=== PATIENT | female | born 1940 | race Caucasian/White ===

== ENCOUNTER 2016-10-20 10:21 | Day surgery (SDC) | payer MEDICARE, OTHER ==
[2016-10-18 12:20] VITALS: BMI 28.8
[~2016-10-20 10:21] MED LIST: ALBUTEROL NEB (CONC) 2.5 MG/0.5 ML INHALATION ONE; LACTATED RINGERS 1,000 ML IV ONE; LACTATED RINGERS 1,000 ML IV SCH; LIDOCAINE 2% (PF) 20 MG/ML 10ML INHALATION ONE
[2016-10-20] MEDS ORDERED: LIDOCAINE 1% 20 ML VIAL (10MG/ML) FOR IV START INTRADERMA ONE (11:24)
[2016-10-20] MEDS ORDERED: ONDANSETRON 4 MG/2 ML VIAL IVP ONE (12:35)
[2016-10-20 12:36] LABS: Glucose,Whole Blood 109 mg/dL (75-99)
[2016-10-20] MEDS ORDERED: DEXAMETHASONE SOD PHOSPHATE 10 MG/ML 1 ML VIAL IV ONE (12:36)
[2016-10-20] MEDS ORDERED: HYDROCORTISONE SUCCINATE 100 MG/2 ML VIAL IV ONE (12:36)
[2016-10-20] MEDS ORDERED: MIDAZOLAM 2 MG/2 ML VIAL ONE (13:39)
[2016-10-20] MEDS ORDERED: GLYCOPYRROLATE 0.2 MG/ML 2 ML VIAL ONE (13:39)
[2016-10-20] MEDS ORDERED: ePHEDrine 50 MG/ML 1 ML AMP ONE (13:39)
[2016-10-20] MEDS ORDERED: PROPOFOL 10 MG/ML 20 ML VIAL IV ONE (13:39)
[2016-10-20] MEDS ORDERED: SUCCINYLCHOLINE CHLORIDE 100 MG/5 ML SYR IV ONE (13:39)
[2016-10-20] MEDS ORDERED: NEOSTIGMINE 1 MG/ML 10 ML VIAL ONE (13:39)
[2016-10-20] MEDS ORDERED: LIDOCAINE 1% INJ 10MG/ML (20 ML MDV) ONE (13:39)
[2016-10-20] MEDS ORDERED: VECURONIUM 10 MG VIAL IV ONE (13:39)
[2016-10-20] MEDS ORDERED: LACTATED RINGERS 1,000 ML IV ONE (14:50)
[2016-10-20 15:01] VITALS: RESP 18; TEMP 97.7
--- NOTE | 2016-10-20 15:28 | XR ---
EXAMINATION TYPE: XR chest 1V portable DATE OF EXAM: 10/20/2016 3:24 PM COMPARISON: NONE HISTORY: Post bronchoscopy TECHNIQUE: Single frontal view of the chest is obtained. FINDINGS: Diffuse airspace disease are noted. Question of a 1 cm pulmonary nodule in the right upper lobe. No sizable pneumothorax. Arthropathy of the shoulders seen. The heart is mildly enlarged. Atheroscler otic change of the aorta. IMPRESSION: 1. Diffuse bilateral airspace disease.
[2016-10-20 15:36] VITALS: BP 125/64; PULSE 51
--- NOTE | 2016-10-20 17:19 | CT ---
EXAMINATION TYPE: CT Chest elia Chen Protocol DATE OF EXAM: 10/20/2016 11:58 AM COMPARISON: NONE HISTORY: Bronchial navigation, persistent cough CT DLP: 600 mGycm Automated exposure control for dose reduction was used. CONTRAST: CT scan of the chest is performed without contrast. FINDINGS: LUNGS: Emphysematous changes are present through the lung kaba. There is a consolidation within the posterior lateral right upper lobe. Small areas of pneumonitis are scattered through the right midlu ng. There is a right middle lobe and superior segment right lower lobe infiltrate. Some underlying nodula rity is not excluded. Posterior lateral right lung base and posterior medial right lung base consolid ations are present. Minimal pneumonitis is present in the posterior medial left lung base. Findings a re nonspecific. Pneumonia could be considered. Vascular calcifications within the aorta. The ascending thoracic aorta at the level of the main pulmo nary artery is 4.3 cm. The main pulmonary artery the bifurcation is 3.1 cm. Coronary artery calcifica tion is present. Limited CT sections are obtained through the upper abdomen which are unremarkable. MEDIASTINUM: There are no greater than 1 cm hilar or mediastinal lymph nodes. No pericardial effusi on is seen. OTHER: No additional significant abnormality is seen. IMPRESSION: 1. CT for bronchial navigation. 2. Scattered areas of consolidation and pneumonitis greater at the medial and lateral posterior right lung base. Correlate for pneumonia. Other etiologies including neoplasm are not excluded.
[2016-10-20 19:30] LABS: RBC, Body Fluid 205 /uL
--- NOTE | 2016-10-20 22:12 | PCN ---
PROCEDURE: Navigation bronchoscopy. ANESTHESIA: This procedure was done under general anesthesia. PREOPERATIVE DIAGNOSIS: Consolidating mass involving the medial segment of the right lower lobe, lateral segment of the right lower lobe along with nodular lesions involving the right middle lobe. Rule out underlying lung cancer. This procedure was done in the operating room lobe under general anesthesia. The patient was induced with Diprivan, intubated and placed on a mechanical ventilator. Preoperatively, the patient had a planning CT scan of the chest. The appropriate Z pads were applied to the chest. The consolidating masses in the right lower lobe were mapped using the [employer]ch[employer] System and all of this information was uploaded into the computer system. The flexible bronchoscope was inserted through the orotracheal tube and it was advanced into the lower trachea. The tip of the orotracheal tube was seen around 3 cm above the qamar. The appropriate calibration was done using the main qamar as a reference point and the secondary qamar in the right upper lobe as another reference point. After performing the adequate calibrations, the navigational system was used to direct the bronchoscope to the right lower lobe medial basilar segment. Multiple transbronchial biopsies were obtained from the right lower lobe medial basilar segment and the consolidating mass in the right lower lobe was approached with significant accuracy where the ( ) seen within a few millimeters from the marked target area. Similar biopsies were obtained using the navigational system from the right lower lobe lateral segment. Both of these areas were brushed using the endobronchial brushings again under navigational guidance. Following that, the bronchoscope was moved to the right middle lobe and under navigational guidance, the other lesions that were mapped earlier in the right middle lobe was biopsied with significant accuracy and were within a few millimeters away from the target lesion. Then another procedure, a bronchoalveolar lavage of the right middle lobe was done. A total of 80 mL of fluid was infused and then 25 to 30 mL was suctioned back. No bedside complications. The bronchoscope was removed and the patient was left to Anesthesia for recovery and extubation. A chest x-ray done to rule out pneumothorax. The patient will be transferred to recovery after she is extubated, where she will be monitored further and if everything is stable, she will be discharged home to be followed up with me in a week or two to discuss the results of the transbronchial biopsy. Total amount of bleeding was less than 5 mL. No bedside complications.
[2016-10-26 16:43] LABS: Mis test requested (Non-blood) Pneumocytis PNEJ
== END 2016-10-20 16:30 | disposition home or self-care (01) ==
LOC: ORWHC2ENDO 10:21
PROVIDERS: ATTEND Internal Medicine Critical Care Medicine
DX: J18.9 Pneumonia, unspecified organism (principal); R91.8 Other nonspecific abnormal finding of lung field; J44.9 Chronic obstructive pulmonary disease, unspecified; I25.10 Atherosclerotic heart disease of native coronary artery without angina pectoris; K21.9 Gastro-esophageal reflux disease without esophagitis; E78.5 Hyperlipidemia, unspecified; I10 Essential (primary) hypertension; I48.2 Chronic atrial fibrillation; Z87.891 Personal history of nicotine dependence; Z99.81 Dependence on supplemental oxygen; Z79.01 Long term (current) use of anticoagulants; Z79.82 Long term (current) use of aspirin; Z79.51 Long term (current) use of inhaled steroids; Z79.52 Long term (current) use of systemic steroids; Z79.899 Other long term (current) drug therapy; Z88.8 Allergy status to other drugs, medicaments and biological substances
CPT/HCPCS: 87798 ×4; 87496; 87498; 87529 ×2; 88104; 88108; 88305; 89050; 87252; 87502 ×2; 87070; 87205; 87116; 87102; 87206; 87299; 71010; 71250; 31628; 31625; 31623; 31624; 31627; J2250; J1100; J2710; J1720; J2405; J2001; J0330; J2704